=== PATIENT | male | born 1965 | race Caucasian/White ===

== ENCOUNTER 2022-07-14 11:44 | Outpatient (CLI) | payer BC | END 2022-07-14 23:59 | disposition home or self-care (01) | LOC: RAD 11:44 | PROVIDERS: ATTEND Podiatrist Foot & Ankle Surgery | DX: S82.62XA Displaced fracture of lateral malleolus of left fibula, initial encounter for closed fracture (principal); M79.672 Pain in left foot; M25.472 Effusion, left ankle; X58.XXXA Exposure to other specified factors, initial encounter; Y93.89 Activity, other specified; Y92.89 Other specified places as the place of occurrence of the external cause; Y99.8 Other external cause status | CPT/HCPCS: 73700 ==

== ENCOUNTER 2022-07-23 10:16 | Day surgery (SDC) | payer BC ==
[~2022-07-23] VITALS: Ht 180.3 cm; Wt 104.3 kg
[2022-07-23] VITALS (9 sets, daily range): BP systolic 123–147; BP diastolic 74–91
[~2022-07-23 10:16] MED LIST: NO HOME MEDS; cefazolin 2gm/D5W 100mL 100 ML IV ONE; famotidine 20mg tablet PO ONE; ringers solution, lacted 1,000 ML IV SCH
[2022-07-23] MEDS ORDERED: morphine 4 MG/ML inj SYRINge IV PRN (13:30)
[2022-07-23] MEDS ORDERED: ringers solution, lacted 1,000 ML IV SCH (13:30)
[2022-07-23] MEDS ORDERED: hydrALAZINE 20mg/ml inj. IV PRN (13:30)
[2022-07-23] MEDS ORDERED: ondansetron/PF 4mg/2ml inj IV PRN (13:30)
[2022-07-23] MEDS ORDERED: fentaNYL/PF 50MCG/1 ML 2ML syringe IV PRN ×2 (13:30)
[2022-07-23] MEDS ORDERED: morphine 2 MG/ML inj. syringe IV PRN (13:30)
[2022-07-23] MEDS ORDERED: labetalol 20mg/4ml (5mg/ml) syringe IV PRN (13:30)
[2022-07-23 13:32] LABS: ALANINE AMINOTRANSFERASE 28 U/L (12-78); ALBUMIN 3.9 G/DL (3.4-5.0); ALBUMIN/GLOBULIN RATIO 1.2 (1.1-1.5); ALKALINE PHOSPHATASE 56 IU/L (46-116); ANION GAP 8 (8-16); ASPARTATE AMINO TRANSFERASE 16 U/L (10-37); BILIRUBIN,TOTAL 0.6 MG/DL (0.1-1.0); BLOOD UREA NITROGEN 13 MG/DL (7-18); BUN/CREATININE RATIO 16.7 (10.0-20.0); CALCIUM 9.2 MG/DL (8.5-10.1); CHLORIDE 106 MMOL/L (99-107); CREATININE 0.78 MG/DL (0.60-1.10); GLUCOSE 98 MG/DL (70-104); POTASSIUM 4.1 MMOL/L (3.5-5.1); SODIUM 140 MMOL/L (135-145); TOTAL CARBON DIOXIDE 26.2 MMOL/L (24-32); TOTAL PROTEIN 7.1 G/DL (6.4-8.2); eGFR > 90 ML/MIN
[2022-07-23 13:33] LABS: BASOPHILS % (AUTO) 0.6 % (0-1); EOSINOPHILS # (AUTO) 0.2 X10'3 (0-0.9); EOSINOPHILS % (AUTO) 2.1 % (0-6); LYMPHOCYTES # (AUTO) 1.8 X10'3 (1.1-4.8); LYMPHOCYTES % (AUTO) 22.8 % (21-51); MEAN CORPUSCULAR HEMOGLOBIN 30.2 PG (27.0-31.0); MEAN CORPUSCULAR HGB CONC 33.4 g/dL (33.0-36.5); MEAN CORPUSCULAR VOLUME 90.2 FL (78-98); MEAN PLATELET VOLUME 9.6 FL (7.4-10.4); MONOCYTES # (AUTO) 0.5 X10'3 (0-0.9); NEUTROPHILS # (AUTO) 5.4 X10'3 (1.8-7.7); NEUTROPHILS % (AUTO) 68.5 % (42-75); PRE OP HEMATOCRIT 44.4 % (42.0-52.0); PRE OP HEMOGLOBIN 14.8 g/dL (14.0-17.9); PRE OP PLATELET COUNT 222 X10'3 (140-440); RED BLOOD COUNT 4.92 X10'6 (4.70-6.10); RED CELL DISTRIBUTION WIDTH 13.5 % (11.5-14.5)
[2022-07-23] MEDS ORDERED: bacitracin 15gm ointment TP ONE (14:44)
[2022-07-23] MEDS ORDERED: ROPIVAcaine 0.5% (5mg/ml) 30ml vial ONE ×2 (14:56→14:57)
[2022-07-23] MEDS ORDERED: midazolam 1 mg/ML 2ml injection ONE (14:56)
[2022-07-23] MEDS ORDERED: LIDOcaine 2% (20mg/ml) 5ml vial ONE (14:56)
[2022-07-23] MEDS ORDERED: propofol inj 20 ML IV ONE (14:56)
[2022-07-23] MEDS ORDERED: ondansetron/PF 4mg/2ml inj ONE (14:57)
[2022-07-23] MEDS ORDERED: tranexamic acid 100mg/ml inj. ONE (15:42)
[2022-07-23] MEDS ORDERED: acetaminophen 1,000mg/100ml IV 100 ML IV ONE (15:44)
[2022-07-23] MEDS ORDERED: fentaNYL/PF 50MCG/1 ML 2ML syringe ONE (17:04)
[2022-07-23] MEDS ORDERED: bacitracin ointment unit dose packet TP ONE (17:10)
--- NOTE | 2022-07-23 17:30 | NUR ---
Received from OR via [facility], accompanied by Anesthesiologist and report given by PEGGY Anesthesiologist. PATIENT WAKING UP, NO S/S OF PAIN, V/S WNL, 20G TO RIGHT HAND, LEFT ANKLE DRESSING C/D/I. ICE AND ELEVATE LEFT LOWER LEG. Addendum: 07/23/22 at 1752 by Bean Reynoso RN Amended: Links added.
--- NOTE | 2022-07-23 18:45 | NUR ---
ALL DISCHARGE CRITERIA HAS BEEN MET. VSS, PAIN AT A TOLERABLE LEVEL, ABLE TO SAFELY AMBULATE AND TRANSFER SELF. IV TAKEN OUT WITHOUT ANY COMPLICATIONS. ALL DISCHARGE INSTRUCTIONS COVERED WITH PATIENT AND ALL QUESTIONS ANSWERED. PATIENT TAKEN OUT VIA WHEELCHAIR WITH ALL BELONGINGS TO PERSONAL VEHICLE WHERE FAMILY DROVE PATIENT HOME. Addendum: 07/23/22 at 1857 by Bean Reynoso RN Amended: Links added.
== END 2022-07-23 18:45 | disposition home or self-care (01) ==
LOC: PAS 10:16
PROVIDERS: ATTEND Podiatrist Foot & Ankle Surgery
DX: S82.832K Other fracture of upper and lower end of left fibula, subsequent encounter for closed fracture with nonunion (principal); G89.18 Other acute postprocedural pain; Z98.890 Other specified postprocedural states; Z79.899 Other long term (current) drug therapy; X58.XXXD Exposure to other specified factors, subsequent encounter
CPT/HCPCS: 27726; 36415; 64445; 64447; 73610; 76000; 80053; 82948; 85025; 93005; A6223; C1713; J0131; J0690; J2250; J2270; J2405; J2704; J2795; J3010; J3490; J7030; J7120; Z7506; Z7508; Z7512; A4618; A6253; A6449; A7000